=== PATIENT | female | born 1995 | race Caucasian/White ===

== ENCOUNTER → 2016-10-07 | Outpatient (CLI) | payer BC ==
--- NOTE | 2016-10-07 12:30 | Diagnostic Imaging Report ---
PROCEDURE: MRI lumbar spine. INDICATION: Low back pain with bilateral leg pain, numbness, and tingling x 4.5 years.. TECHNIQUE: Multiplanar and multisequence noncontrast magnetic resonance imagine was performed of the lumbar spine. CORRELATION STUDY: None. FINDINGS: There is slight straightening of the normal lumbar lordotic curvature on static imaging. Alignment otherwise anatomic. The lumbar vertebral body heights are maintained and without geographic lesion. The conus appears unremarkable. L5-S1: Unremarkable. L4-L5: Moderate loss of disc space height and loss of intrasubstance signal intensity. Slight asymmetric right paramedian disc protrusion present with right ventrolateral exiting neuroforaminal narrowing. This area measures approximately 7 x 3 mm in axial plane. Additional disc and osteophytes extend into bilateral foramina with mild foraminal narrowing. L3-L4: Unremarkable. L2-L3: Unremarkable. L1-L2: Unremarkable. The visualized portions of the abdominal aorta and kidneys are negative. No pathologically enlarged central retroperitoneal lymph nodes. IMPRESSION: L4-L5 right paramedian disc protrusion with slight right ventrolateral exiting neuroforaminal stenosis. Additional mild foraminal narrowing owing to disc and osteophyte formation. Remaining disc levels fairly well maintained and unremarkable. Dictated by: Dictated on workstation # [id number]
== END ==
LOC: RAD 11:44
PROVIDERS: ATTEND Orthopaedic Surgery
DX: M54.16 Radiculopathy, lumbar region (principal)
CPT/HCPCS: 72148